=== PATIENT | male | born 1970 | race Caucasian/White ===

== ENCOUNTER 2018-03-02 14:17 | Emergency (ER) | payer SELFPAY ==
[~2018-03-02] VITALS: Ht 180.3 cm; Wt 80.0 kg
[2018-03-02 14:20] VITALS: BP 173/92; PULSE 90; RESP 16; TEMP 98.5; O2SAT 100
[2018-03-02] MEDS ORDERED: PROT40TA PO (14:42)
[2018-03-02] MEDS ORDERED: HYDR-3516 PO (14:54)
--- NOTE | 2018-03-02 14:54 | PD ---
HPI Chief Complaint: Injury Time Seen by Provider: 14:41 Travel History International Travel<30 days: No Contact w/Intl Traveler<30days: No Traveled to known affect area: No History of Present Illness HPI 48-year-old male presents emergency department for evaluation of right bicep pain this started after lifting his father 3 hours ago. Says that his father is in hospice and patient was lifting his father had an instant onset of pain to his right bicep. Patient states that he has a history of bicep repair and feels that he may have torn his bicep again. Patient says he called his specialist in [place], [place] who states that he could evaluate the patient on of this week for possible Friday surgery. Says that his specialist recommended he come to the emergency department for evaluation and pain control and he would take care of the patient later on this week as previously mentioned. He denies any numbness or tingling. Denies any shoulder or elbow pain. He denies any significant weakness. PFSH Past Medical History GERD: Yes Ulcer: Yes Tetanus Vaccination: < 5 Years Influenza Vaccination: Yes Past Surgical History Abdominal Surgery: Yes (STOMACHE ULCER PERFERATION) Social History Alcohol Use: No Tobacco Use: Yes Substance Use: No Allergies-Medications (Allergen,Severity, Reaction): Coded Allergies: No Known Allergies (Unverified , 03/02/18) Reported Meds & Prescriptions Reported Meds & Active Scripts Active Hydrocodone-Acetaminophen 5-325 mg Tab 1 Tab PO Q6H PRN 3 Days Reported Protonix (Pantoprazole Sodium) 40 Mg Tab 40 Mg PO DAILY Review of Systems Except as stated in HPI: all other systems reviewed are Neg Physical Exam Narrative GENERAL: Well-nourished, well-developed patient, in moderate distress SKIN: Focused skin assessment warm/dry. HEAD: Normocephalic. EYES: No scleral icterus. No injection or drainage. NECK: Supple, trachea midline. No JVD or lymphadenopathy. CARDIOVASCULAR: Regular rate and rhythm without murmurs, gallops, or rubs. RESPIRATORY: Breath sounds equal bilaterally. No accessory muscle use. MUSCULOSKELETAL: No cyanosis, or edema. Right arm-obvious bulge to the middle anterior aspect of the bicep. Patient holding in a flexed, fixed position. significant tenderness palpation. No ecchymosis. There is some edema to the area. Neurovascularly intact. No tenderness palpation of the shoulder or elbow joint. BACK: Nontender without obvious deformity. No CVA tenderness. Data Data Last Documented VS Vital Signs Date Time Temp Pulse Resp B/P (MAP) Pulse Ox O2 Delivery O2 Flow Rate FiO2 03/02/18 14:39 Room Air 03/02/18 14:20 98.5 90 16 173/92 (119) 100 Orders Orders Ed Discharge Order (03/02/18 14:59) MDM Medical Decision Making Medical Screen Exam Complete: Yes Emergency Medical Condition: Yes Differential Diagnosis right bicep rupture, bicep strain, arm contusion Narrative Course 48-year-old male presents emergency department for evaluation of severe right bicep pain after lifting his father today. Says the pain was instantaneous and feels like when he had a biceps tendon rupture previously. Says he has a history of repair feels that he may have ruptured this again. Vital signs are stable. Physical exam findings consistent with a biceps tendon rupture versus strain. Neurovascularly intact. Says he spoke with his specialist, Dr. Hillman and would see him this week for evaluation. Patient given prescription for hydrocodone. Advised that he should follow-up with a specialist this week. Patient states understanding will comply. Diagnosis Primary Impression: Injury of tendon of long head of right biceps Qualified Codes: S46.101A - Unspecified injury of muscle, fascia and tendon of long head of biceps, right arm, initial encounter Referrals: Orthopedist Additional Instructions: Follow-up with her specialists as discussed. You may use Motrin per package instructions. Scripts Hydrocodone-Acetaminophen (Hydrocodone-Acetaminophen) 5-325 mg Tab 1 TAB PO Q6H Y for PAIN for 3 Days, #12 TAB 0 Refills Prov: Hieu Dangelo MD 03/02/18 Disposition: 01 DISCHARGE HOME Condition: Stable Rachel Ackerman Mar 02, 2018 14:54
== END 2018-03-02 15:13 | disposition home or self-care (01) ==
LOC: PHEFT 14:17
DX: S46.101A Unspecified injury of muscle, fascia and tendon of long head of biceps, right arm, initial encounter (principal); X50.0XXA Overexertion from strenuous movement or load, initial encounter; K21.9 Gastro-esophageal reflux disease without esophagitis; Z72.0 Tobacco use
CPT/HCPCS: 99283